=== PATIENT | male | born 1985 | race Caucasian/White ===

== ENCOUNTER 2024-11-22 13:48 | Emergency (ER) | payer MEDICAID ==
[~2024-11-22] VITALS: Ht 165.1 cm; Wt 69.0 kg
[2024-11-22 14:02] VITALS: O2SAT 100
[2024-11-22 14:38] LABS: BASOPHILS % 0.9 % (0.0-2.0); EOSINOPHILS % 4.4 % (0.0-5.0); HEMATOCRIT. 41.1 % (42.0-52.0); HEMOGLOBIN. 13.8 g/dL (14.0-18.0); LYMPHOCYTES % 33.1 % (20.0-50.0); MEAN PLATELET VOLUME 8.4 fl (7.4-10.4); MONOCYTES % 8.7 % (2.0-8.0); NEUTROPHILS % 52.9 % (40.0-76.0); PLATELET 251 x1000/uL (130-400); RED BLOOD CELL COUNT 4.87 mill/uL (4.7-6.1); RED CELL DISTRIBUTION WIDTH 13.5 % (11.6-14.6)
[2024-11-22 14:52] LABS: CREATININE 1.0 mg/dL (0.6-1.3); UREA NITROGEN BLOOD 10 mg/dL (9-23)
[2024-11-22 17:36] LABS: TROPONIN I HIGH SENSITIVITY 14 ng/L (3.0-53)
[2024-11-22 17:37] LABS: ASPARTATE AMINOTRANSFERASE 24 IU/L (<34); BILIRUBIN DIRECT 0.2 mg/dL (<=3.0); BILIRUBIN TOTAL 0.7 mg/dL (0.1-1.0); PROTEIN TOTAL 7.2 g/dL (6.0-8.3)
[2024-11-22 18:02] LABS: INR 1.0
[2024-11-22 19:44] VITALS: BP 124/85; PULSE 60; RESP 16; TEMP 36.8; O2SAT 100
== END 2024-11-22 19:45 | disposition home or self-care (01) ==
LOC: ER 13:48
DX: R00.2 Palpitations (principal); Z90.49 Acquired absence of other specified parts of digestive tract
CPT/HCPCS: 36415; 71045; 80048; 80076; 84484; 85025; 93005; 99285

== ENCOUNTER 2024-12-28 01:43 | Emergency (ER) | payer MEDICAID ==
[~2024-12-28] VITALS: Ht 154.9 cm; Wt 68.0 kg
[2024-12-28 01:59] VITALS: O2SAT 99
[2024-12-28] MEDS: TETANUS, DIPHTHERIA, PERTUSSIS VAC/PF 0.5ML (>10YR OLD) IM ONE (03:05)
[2024-12-28] MEDS: LIDOCAINE HCL 1% 20ML VIAL INFIL ONE (03:06)
[2024-12-28] MEDS ORDERED: NAPR-1176 MT (04:40)
[2024-12-28 05:29] VITALS: BP 135/90; PULSE 55; RESP 16; TEMP 37.1; O2SAT 99
== END 2024-12-28 05:30 | disposition home or self-care (01) ==
LOC: ER 01:43
DX: S60.221A Contusion of right hand, initial encounter (principal); Z79.1 Long term (current) use of non-steroidal anti-inflammatories (NSAID); Z90.49 Acquired absence of other specified parts of digestive tract; W23.2XXA Caught, crushed, jammed or pinched between a moving and stationary object, initial encounter; Y93.89 Activity, other specified; Y92.89 Other specified places as the place of occurrence of the external cause; Y99.8 Other external cause status
CPT/HCPCS: 73130; 90715; 10140; 90471; 99284; Z7610; 11740